=== PATIENT | male | born 1945 | race Caucasian/White ===

== ENCOUNTER 2022-09-20 06:00 | Day surgery (SDC) | payer MEDICARE, OTHER ==
[~2022-09-20] VITALS: Ht 172.7 cm; Wt 145.4 kg
[2022-09-20] MEDS ORDERED: BENZOCAINE 20% 50 MCG/SPRAY 57 GM TP ONE (06:01)
[2022-09-20] MEDS ORDERED: ALBUTEROL SULFATE 2.5 MG/0.5 ML NEB SOLUTION NEB ONE (06:01)
[2022-09-20] MEDS ORDERED: LIDOCAINE 2% 11 ML JELLY TP ONE (06:01)
[2022-09-20] MEDS ORDERED: LIDOCAINE 4% 50 ML SOLUTION TP ONE (06:01)
[2022-09-20] MEDS ORDERED: SODIUM CHLORIDE 0.9% 1,000 ML IV ONE (07:00)
[2022-09-20] MEDS ORDERED: MIDAZOLAM HCL 2 MG/2 ML VIAL ONE (08:19)
[2022-09-20] MEDS ORDERED: FentaNYL CITRATE PF 100 MCG/2 ML VIAL ONE (08:20)
[2022-09-20 08:21] LABS: GLUCOMETER DEV NAME(LOC) SDS.; GLUCOSE,POINT OF CARE 155 MG/DL (70-110)
[2022-09-20] MEDS ORDERED: MethylPREDNISolone SOD SUCC 125 MG/2 ML VIAL ONE (09:15)
[2022-09-20] MEDS ORDERED: MethylPREDNISolone SOD SUCC 125 MG/2 ML VIAL IVP ONE (09:30)
[2022-09-20] MEDS ORDERED: PROMETHAZINE HCL/CODEINE 6.25-10MG/5ML SYRUP UDCUP PO ONE (10:15)
[2022-09-20] MEDS ORDERED: METF-445 PO (10:25)
[2022-09-20] MEDS ORDERED: ATOR40TA71 PO (10:27)
[2022-09-20] MEDS ORDERED: ASPI-449 PO (10:29)
[2022-09-20] MEDS ORDERED: OXYB5SYR6 PO (10:30)
[2022-09-20] MEDS ORDERED: CETI10TA58 PO (10:31)
[2022-09-20] MEDS ORDERED: LOSA-382 PO (10:32)
[2022-09-20] MEDS ORDERED: GLYB-145 PO (10:32)
== END 2022-09-20 11:15 | disposition home or self-care (01) ==
LOC: SURGERY 06:00
PROVIDERS: ATTEND Internal Medicine Critical Care Medicine
DX: J38.4 Edema of larynx (principal); B37.0 Candidal stomatitis; I25.2 Old myocardial infarction; Z79.01 Long term (current) use of anticoagulants; Z79.899 Other long term (current) drug therapy; Z90.49 Acquired absence of other specified parts of digestive tract; Z98.890 Other specified postprocedural states; Z86.11 Personal history of tuberculosis; Z87.01 Personal history of pneumonia (recurrent)
CPT/HCPCS: 31623; 88112; 82962; 87206; 87101; 87220; 87070; 87186; 31624; 94640; 71045; 87015; 93005; J3010; J2250; J2930; Q9967; J7613; Z7610